=== PATIENT | male | born 1940 | race Caucasian/White ===

== ENCOUNTER 2018-03-12 12:24 | Emergency (ER) | payer MEDICARE, OTHER ==
--- NOTE | 2018-03-12 13:01 | XRAY ---
Indication: Left facial droop. Possible CVA. Multiple contiguous axial images obtained through the head without contrast. Comparison: None Age-appropriate global atrophy and minimal periventricular degenerative micro-ischemia. No acute intracranial hemorrhage, abnormal extra-axial fluid collection, or mass effect. Fourth ventricle is midline without hydrocephalus. Bony calvarium intact. Partial opacification of the right mastoid air cells and minimal mucosal thickening of the inferior right maxillary sinus. Remaining visualized paranasal sinuses and left mastoid air cells are clear. Impression: 1. Nonacute senile brain. 2. Partial opacification the right mastoid air cells and right maxillary sinus mucosal thickening both presumed inflammatory. CTDI 70.48
[2018-03-12 13:13] LABS: INR 1.1 (0.8-3.0); PROTIME 12.8 SECONDS (8.83-12.87)
[2018-03-12] MEDS ORDERED: Sodium Chloride 0.9% 1000 ML 1,000 ML ONE (13:13)
[2018-03-12 13:14] LABS: BASOPHIL % 0.3 % (0.0-0.4); Basophil (Absolute #) 0.02 (0-0.4); Eosinophil % 2.1 % (0.00-5.0); Eosinophil (Absolute #) 0.13 (0-0.5); Granulocyte Absolute (ANC) 4.09 (1.4-6.9); Granulocytes % 64.9 % (36.0-66.0); Hematocrit 43.9 % (42-50); Hemoglobin 15.1 gm/dl (12.5-18.0); Lymphocyte (Absolute #) 1.39 (1.0-4.6); Lymphocytes % 22.1 % (24.0-44.0); Mean Cell Volume 92.4 fl (78-100); Mean Corpuscular Hemoglobin 31.8 pg (26-32); Mean Corpuscular Hgb Concent. 34.4 g/dl (32-36); Mean Platelet Volume 9.9 fl (6-9.5); Monocyte (Absolute #) 0.67 (0.0-1.3); Monocytes % 10.6 % (0.0-12.0); Platelet Count 254 K/mm3 (150-450); Red Blood Count 4.75 M/mm3 (4.1-5.6); Red Cell Distribution Width 13.6 % (11.5-14.0); White Blood Count 6.3 K/mm3 (4.0-10.5)
--- NOTE | 2018-03-12 13:14 | ERPHSYRPT ---
- History of Present Illness Time Seen by Provider: 03/12/18 12:35 Source: patient Patient Subjective Stated Complaint: pt was sitting at DQ when started havning weakness, drooping of mouth and eyes rolled back in head, he was carried to car and brought to hospital. Triage Nursing Assessment: pt arrived per wc he was able to help undress self and stood with assist of 2 to transfer to bed. pt alert, resp esy,skin w/d/p. no edema, Physician History: PATIENT WITH A HISTORY OF HYPERTENSION, DIAGNOSIS OF CORTICO BASILAR DEGENERATION, AFTER EVALUATED AT [facility] 8 WEEKS AGO, STATES 30 MINUTES PRIOR TO ARRIVAL BEFORE EATING ONSET OF LEFT FACIAL DROOP, SLURRED SPEECH WITH TRANSIENT UNRESPONSIVENESS FOR 10-20 SECONDS. HAD ASSOCIATED LETHARGY. ARRIVED TO EMERGENCY ALERT AND APPROPRIATE, DENIES COMPLAINTS OF HEADACHE, BLURRED VISION, SLURRED SPEECH, FOCAL NUMBNESS, WEAKNESS IN EXTREMITIES. PATIENT ALSO HAS A PROBABLE Timing/Duration: today Severity: mild Character of Deficits: new weakness, impaired speech, Left Facial, other ( TRANSIENT) Deficits: no difficulties Baseline/Normal Cognition: alert oriented x 3 Current Cognition: alert oriented x 3 Baseline Gait: walks only w/assistance Associated Symptoms: slurred speech Allergies/Adverse Reactions: No Known Drug Allergies Allergy (Unverified 03/12/18 12:56) Home Medications: Carvedilol 12.5 mg DAILY 03/12/18 [History] Losartan Potassium [Cozaar] 25 mg DAILY 03/12/18 [History] Hx Influenza Vaccination/Date Given: No Hx Pneumococcal Vaccination/Date Given: No Immunizations Up to Date: Yes - Review of Systems Constitutional: No Fever, No Chills Eyes: No Symptoms Ears, Nose, & Throat: No Symptoms Respiratory: No Symptoms, No Cough, No Dyspnea Cardiac: No Symptoms, No Chest Pain, No Edema, No Syncope Abdominal/Gastrointestinal: No Symptoms, No Abdominal Pain, No Nausea, No Vomiting, No Diarrhea Genitourinary Symptoms: No Symptoms, No Dysuria Musculoskeletal: No Symptoms, No Back Pain, No Neck Pain Skin: No Rash Neurological: Gait Changes, Lethargy, No Dizziness, No Focal Weakness, No Sensory Changes Psychological: No Symptoms Endocrine: No Symptoms All Other Systems: Reviewed and Negative - Past Medical History Pertinent Past Medical History: Yes Cardiac History: Hypertension Other Medical History: CBD - Past Surgical History Past Surgical History: Yes Gastrointestinal: Appendectomy Other Surgical History: finger - Social History Smoking Status: Never smoker Exposure to second hand smoke: No Patient Lives Alone: Yes - Nursing Vital Signs Nursing Vital Signs: Initial Vital Signs Temperature 97.0 F 03/12/18 12:25 Pulse Rate 63 03/12/18 12:25 Respiratory Rate 16 03/12/18 12:25 Blood Pressure 182/84 03/12/18 12:25 O2 Sat by Pulse Oximetry 100 03/12/18 12:25 Pain Scale Pain Intensity 0 - Emmett Coma Scale Best Eye Response ([place]): (4) open spontaneously Best Verbal Response ([place]): (5) oriented Best Motor Response ([place]): (6) obeys commands Emmett Total: 15 - Physical Exam General Appearance: no apparent distress, alert Eye Exam: bilateral eye: normal inspection, PERRL, EOMI Ears, Nose, Throat Exam: normal ENT inspection, moist mucous membranes Neck Exam: normal inspection, non-tender, supple Respiratory: normal breath sounds, lungs clear, airway intact, No respiratory distress Cardiovascular: regular rate/rhythm, normal heart sounds, No edema Gastrointestinal: soft, No tenderness, No distention Back Exam: normal inspection Extremity Exam: normal inspection, No pedal edema Peripheral Pulses: carotid (R): 2+, carotid (L): 2+, femoral (R): 2+, femoral (L ): 2+, dorsalis-pedis (R): 2+, dorsalis-pedis (L): 2+ 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, 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 Exam: normal hearing, normal speech, facial droop (TRANSIENT LEFT SIDED FACIAL DROOP, RESOLVED AFTER 10 MINUTES THEN REOCURRENCE), tongue midline Coordination/Gait: normal finger to nose, normal gait, ABN nose to finger (L) Motor/Sensory: no motor deficit, no sensory deficit DTR: bicep (R): 2+, bicep (L): 2+, tricep (R): 2+, tricep (L): 2+, knee (R): 2+ , knee (L): 2+, ankle (R): 2+, ankle (L): 2+ Skin Exam: normal color, warm, dry, No rash SpO2 Interpretation: normal SpO2: 100 Ordered Tests: Active Orders 24 hr Category Date Time Status Glass Cutting Machine Feeder STAT Care 03/12/18 13:08 Active Oxygen-ED Only Nasal Cannula 2 lpm Care 03/12/18 13:07 Active CHEST 1 VIEW (PORTABLE) Stat Exams 03/12/18 13:07 Completed HEAD WITHOUT CONTRAST [CT] Routine Exams 03/12/18 12:35 Completed CBC W DIFF Stat Lab 03/12/18 13:00 Completed CMP Stat Lab 03/12/18 13:00 Completed PROTIME WITH INR Stat Lab 03/12/18 13:00 Completed TROPONIN Q3H Lab 03/12/18 13:00 Completed TROPONIN Q3H Lab 03/12/18 16:15 Ordered TROPONIN Q3H Lab 03/12/18 19:15 Ordered TROPONIN Q3H Lab 03/12/18 22:15 Ordered TROPONIN Q3H Lab 03/13/18 01:15 Ordered Medication Summary Generic Name Dose Route Start Last Admin Trade Name Freq PRN Reason Stop Dose Admin Sodium Chloride 1,000 mls @ 50 mls/hr 03/12/18 13:15 03/12/18 13:33 Sodium Chloride 0.9% 1000 Ml IV 04/11/18 13:14 50 mls/hr .Q20H ILIA Administration Lab/Rad Data: Laboratory Result Diagrams 03/12/18 13:00 03/12/18 13:00 Laboratory Results 03/12/18 03/12/18 03/12/18 Range/Units 13:00 13:00 13:00 WBC (4.0-10.5) K/mm3 RBC (4.1-5.6) M/mm3 Hgb (12.5-18.0) gm/dl Hct (42-50) % MCV (78-100) fl MCH (26-32) pg MCHC (32-36) g/dl RDW (11.5-14.0) % Plt Count (150-450) K/mm3 MPV (6-9.5) fl Gran % (36.0-66.0) % Eos # (Auto) (0-0.5) Absolute Lymphs (auto) (1.0-4.6) Absolute Monos (auto) (0.0-1.3) Lymphocytes % (24.0-44.0) % Monocytes % (0.0-12.0) % Eosinophils % (0.00-5.0) % Basophils % (0.0-0.4) % Absolute Granulocytes (1.4-6.9) Basophils # (0-0.4) PT 12.8 (8.83-12.87) SECONDS INR 1.10 (0.8-3.0) Sodium 140 (137-145) mmol/L Potassium 4.5 (3.5-5.1) mmol/L Chloride 104 (98-107) mmol/L Carbon Dioxide 27 (22-30) mmol/L Anion Gap 13.1 (5-15) MEQ/L BUN 15 (9-20) mg/dL Creatinine 1.18 (0.66-1.25) mg/dL Estimated GFR > 60.0 ML/MIN Glucose 93 (74-106) mg/dL Calcium 9.9 (8.4-10.2) mg/dL Total Bilirubin 0.80 (0.2-1.3) mg/dL AST 23 (17-59) U/L ALT 27 (0-50) U/L Alkaline Phosphatase 74 (38-126) U/L Troponin I < 0.012 (0.000-0.034) ng/mL Serum Total Protein 7.6 (6.3-8.2) g/dL Albumin 4.5 (3.5-5.0) g/dL 03/12/18 Range/Units 13:00 WBC 6.3 (4.0-10.5) K/mm3 RBC 4.75 (4.1-5.6) M/mm3 Hgb 15.1 (12.5-18.0) gm/dl Hct 43.9 (42-50) % MCV 92.4 (78-100) fl MCH 31.8 (26-32) pg MCHC 34.4 (32-36) g/dl RDW 13.6 (11.5-14.0) % Plt Count 254 (150-450) K/mm3 MPV 9.9 H (6-9.5) fl Gran % 64.9 (36.0-66.0) % Eos # (Auto) 0.13 (0-0.5) Absolute Lymphs (auto) 1.39 (1.0-4.6) Absolute Monos (auto) 0.67 (0.0-1.3) Lymphocytes % 22.1 L (24.0-44.0) % Monocytes % 10.6 (0.0-12.0) % Eosinophils % 2.1 (0.00-5.0) % Basophils % 0.3 (0.0-0.4) % Absolute Granulocytes 4.09 (1.4-6.9) Basophils # 0.02 (0-0.4) PT (8.83-12.87) SECONDS INR (0.8-3.0) Sodium (137-145) mmol/L Potassium (3.5-5.1) mmol/L Chloride (98-107) mmol/L Carbon Dioxide (22-30) mmol/L Anion Gap (5-15) MEQ/L BUN (9-20) mg/dL Creatinine (0.66-1.25) mg/dL Estimated GFR ML/MIN Glucose (74-106) mg/dL Calcium (8.4-10.2) mg/dL Total Bilirubin (0.2-1.3) mg/dL AST (17-59) U/L ALT (0-50) U/L Alkaline Phosphatase (38-126) U/L Troponin I (0.000-0.034) ng/mL Serum Total Protein (6.3-8.2) g/dL Albumin (3.5-5.0) g/dL - Progress Progress Note: 03/12/18 14:04, AFTER DISCUSSION WITH NEUROLOGIST DR NIELSEN, WITH RECCOMENDATION OF NO THROMBOLYTICS NIH STROKE SCALE OF 9, DISCUSSED WITH DR FRANKY NIELSEN NEUROLOGIST AT 1315 ACCEPTS TRANSFER TO [facility], 03/12/18 14:[address] Other (DISCUSSED WITH DR FRANKY NIELSEN AT 1315 ACCEPTS TRANSFER TO [facility]) - Departure Time of Disposition: 14:33 Departure Disposition: Transfer Clinical Impression: TIA (transient ischemic attack), CORTICOBASAL DEGENERATION Condition: Stable Critical Care Time: No
[2018-03-12] MEDS ORDERED: Sodium Chloride 0.9% 1000 ML 1,000 ML IV SCH (13:15)
[2018-03-12 13:18] LABS: ALBUMIN 4.5 g/dL (3.5-5.0); ALKALINE PHOSPHATASE 74 U/L (38-126); ANION GAP 13.1 MEQ/L (5-15); BLOOD UREA NITROGEN 15 mg/dL (9-20); CHLORIDE 104 mmol/L (98-107); Calcium 9.9 mg/dL (8.4-10.2); Carbon Dioxide 27 mmol/L (22-30); Creatinine 1 1.18 mg/dL (0.66-1.25); Glucose 93 mg/dL (74-106); Potassium 4.5 mmol/L (3.5-5.1); SGOT/AST 23 U/L (17-59); SGPT/ALT 27 U/L (0-50); SODIUM 140 mmol/L (137-145); Total Protein 7.6 g/dL (6.3-8.2)
--- NOTE | 2018-03-12 13:23 | XRAY ---
Indication: Cough. Stroke symptoms. Comparison: None Portable chest slightly underinflated and clear. Heart is not enlarged. Bony thorax intact with old left clavicle fracture. Impression: Nonacute underinflated chest.
[2018-03-12 13:47] VITALS: BP 170/91; PULSE 66; O2SAT 100
== END 2018-03-12 14:07 | disposition short-term general hospital (02) ==
LOC: ED 12:24
DX: G45.9 Transient cerebral ischemic attack, unspecified (principal)
CPT/HCPCS: 36415; 70450; 71045; 80053; 84484; 85025; 85610; 93041; 96360; 96374; 99285

== ENCOUNTER 2019-01-16 00:31 | Emergency (ER) | payer MEDICARE, OTHER ==
--- NOTE | 2019-01-16 00:34 | ERPHSYRPT ---
- History of Present Illness Time Seen by Provider: 01/16/19 00:34 Source: patient, family Exam Limitations: no limitations Physician History: 78 y/o white male with known urinary and prostate issues. pt was awaiting ponce catheter to be mailed to him but it has not yet arrived. pt now with urinary retention. pt is to see his urologist in next couple of weeks. pt was started on Keflex 4 days ago. Timing/Duration: day(s) (4) Activites at Onset: none Quality: aching Onset Location: suprapubic Severity of Pain-Max: mild Severity of Pain-Current: mild Associated Symptoms: abdominal pain (suprapubic), No nausea, No vomiting Prior abdominal problems: none Sexual intercourse history: non-contributory Allergies/Adverse Reactions: No Known Drug Allergies Allergy (Unverified 03/12/18 12:56) Home Medications: Carvedilol 3.125 mg PO BID 03/12/18 [History] Losartan Potassium [Cozaar] 100 mg PO DAILY 03/12/18 [History] Aspirin 81 gm Chew [Baby Aspirin 81 mg Chew] 81 mg PO DAILY 01/16/19 [ History] Cephalexin Mh 500 mg [Keflex 500 mg] 500 mg PO TID 01/16/19 [History] Tamsulosin HCl 0.4 mg [Flomax 0.4 MG] 0.4 mg PO DAILY 01/16/19 [History] Temazepam 15 mg [Restoril 15 MG] 15 mg PO BID 01/16/19 [History] Hx Influenza Vaccination/Date Given: No Hx Pneumococcal Vaccination/Date Given: No - Past Medical History Pertinent Past Medical History: Yes Neurological History: No Pertinent History ENT History: No Pertinent History Cardiac History: Hypertension Respiratory History: No Pertinent History Endocrine Medical History: No Pertinent History Musculoskeletal History: No Pertinent History GI Medical History: No Pertinent History History: No Pertinent History Psycho-Social History: No Pertinent History Male Reproductive Disorders: No Pertinent History Other Medical History: CBD - Past Surgical History Past Surgical History: Yes Neuro Surgical History: No Pertinent History Cardiac: No Pertinent History Respiratory: No Pertinent History Gastrointestinal: Appendectomy Genitourinary: No Pertinent History Musculoskeletal: No Pertinent History Male Surgical History: No Pertinent History Other Surgical History: finger - Social History Smoking Status: Never smoker Exposure to second hand smoke: No Patient Lives Alone: Yes - Review of Systems Constitutional: No Symptoms Eyes: No Symptoms Ears, Nose, & Throat: No Symptoms Respiratory: No Symptoms Cardiac: No Symptoms Abdominal/Gastrointestinal: Abdominal Pain (suprapubic), No Nausea, No Vomiting Genitourinary Symptoms: Urinary Retention Musculoskeletal: No Symptoms Skin: No Symptoms Neurological: No Symptoms Psychological: No Symptoms Endocrine: No Symptoms Hematologic/Lymphatic: No Symptoms Immunological/Allergic: No Symptoms All Other Systems: Reviewed and Negative - Nursing Vital Signs Nursing Vital Signs: Initial Vital Signs Temperature 98.3 F 01/16/19 00:44 Pulse Rate 81 01/16/19 00:44 Respiratory Rate 17 01/16/19 00:44 Blood Pressure 150/87 01/16/19 00:44 O2 Sat by Pulse Oximetry 97 01/16/19 00:44 Pain Scale Pain Intensity 0 - Physical Exam General Appearance: no apparent distress, alert, anxiety Eye Exam: other (conjunctivitis) Ears, Nose, Throat Exam: normal ENT inspection, moist mucous membranes Neck Exam: normal inspection, non-tender, supple Respiratory Exam: normal breath sounds, lungs clear, airway intact, No chest tenderness, No respiratory distress Cardiovascular Exam: regular rate/rhythm, normal heart sounds, normal peripheral pulses Gastrointestinal/Abdomen Exam: soft, normal bowel sounds, tenderness (mild suprapubic), No guarding, No rebound Rectal Exam: not done Back Exam: normal inspection, normal range of motion, No CVA tenderness, No vertebral tenderness Extremity Exam: normal inspection, normal range of motion, pelvis stable Neurologic Exam: alert, oriented x 3, cooperative, mangle press catcher II-XII nml as tested, normal mood/affect Skin Exam: normal color, warm, dry Lymphatic Exam: No adenopathy SpO2 Interpretation: normal O2 Delivery: Room Air - Course Nursing assessment & vital signs reviewed: Yes Ordered Tests: Active Orders 24 hr Category Date Time Status Ponce [Catheter-[place] Ponce] STAT Care 01/16/19 01:01 Active Medication Summary Generic Name Dose Route Start Last Admin Trade Name Freq PRN Reason Stop Dose Admin Doxycycline Hyclate 100 mg 01/16/19 01:16 Vibramycin 100 Mg PO 01/16/19 01:17 STAT ONE Discontinued Medications Generic Name Dose Route Start Last Admin Trade Name Freq PRN Reason Stop Dose Admin Ciprofloxacin 500 mg 01/16/19 01:04 Cipro 500 Mg PO 01/16/19 01:05 STAT ONE - Progress Progress: improved Progress Note: 01/16/19 01:11 pt initially stated nkda. but family states he is allergic to quinalone antibx. 01/16/19 01:16 initial urine culture 01/11/19 shows growth of staph warneri. sensitive to doxycyline Counseled pt/family regarding: lab results, diagnosis, need for follow-up - Departure Departure Disposition: Home Clinical Impression: Urinary retention, UTI (urinary tract infection) Condition: Stable Critical Care Time: No Referrals: LILLIE KITCHEN MD [Primary Care Provider] - Additional Instructions: continue keflex. take new medications as prescribed. follow up with dr. kitchen and your urologist on ThursdayJanuary 17 to arrange follow up appointment Prescriptions: Doxycycline Hyclate 100 mg [Vibramycin 100 MG] 100 mg PO BID #14 tab
[2019-01-16 00:46] VITALS: O2SAT 97
[2019-01-16] MEDS ORDERED: Cipro 500 MG PO ONE (01:04)
[2019-01-16] MEDS ORDERED: Vibramycin 100 MG PO ONE (01:16)
[2019-01-16] MEDS ORDERED: Vibramycin 100 MG ONE (01:19)
[2019-01-16 01:28] VITALS: BP 133/74; PULSE 77
== END 2019-01-16 01:33 | disposition home or self-care (01) ==
LOC: ED 00:31
DX: R33.9 Retention of urine, unspecified (principal); N39.0 Urinary tract infection, site not specified; Z79.899 Other long term (current) drug therapy
CPT/HCPCS: 51702; 99283; A9270-GY